=== PATIENT | male | born 2000 | race Caucasian/White ===

== ENCOUNTER 2021-08-23 11:19 | Emergency (ER) | payer OTHER ==
[~2021-08-23] VITALS: Ht 182.9 cm; Wt 80.7 kg
--- NOTE | 2021-08-23 11:42 | NUR ---
The patient is /PD c/o L wrist pain s/p getting arrested/taken down by PD. Rates pain 03/16. Will continue to monitor the patient.
--- NOTE | 2021-08-23 13:03 | NUR ---
Patient discharged in stable condition. Written and verbal after care instructions given. Patient and [employer] officers verbalize understanding of instruction. The patient is picked up by [employer] officers.
[2021-08-23 13:04] VITALS: BP 126/88
== END 2021-08-23 13:05 ==
LOC: ER 11:27
DX: S63.592A Other specified sprain of left wrist, initial encounter (principal); Z88.0 Allergy status to penicillin; X50.1XXA Overexertion from prolonged static or awkward postures, initial encounter; Y93.89 Activity, other specified; Y92.89 Other specified places as the place of occurrence of the external cause; Y99.8 Other external cause status
CPT/HCPCS: 73110